=== PATIENT | male | born 1975 | race African-American/Black ===

== ENCOUNTER 2017-10-24 14:21 | Emergency (ER) | payer SELFPAY | END 2017-10-24 15:09 | disposition home or self-care (01) | LOC: ER 14:21 | DX: B34.9 Viral infection, unspecified (principal) | CPT/HCPCS: 71046; 99284-25 ==

== ENCOUNTER 2018-03-10 03:55 | Emergency (ER) | payer SELFPAY | END 2018-03-10 05:15 | disposition home or self-care (01) | LOC: ER 03:55 | DX: K08.89 Other specified disorders of teeth and supporting structures (principal) | CPT/HCPCS: 99283 ==

== ENCOUNTER 2018-08-22 10:51 | Emergency (ER) | payer SELFPAY ==
[~2018-08-22] VITALS: Ht 177.8 cm; Wt 74.8 kg
[~2018-08-22 10:51] MED LIST: AMOX1TAB61 PO; HYDR-971 PO; OSEL75CA PO
[2018-08-22 11:07] VITALS: BP 110/59
--- NOTE | 2018-08-22 11:31 | PHYS DOC ---
Past Medical History Past Medical History: No Pertinent History Past Surgical History: No Surgical History Alcohol Use: None Drug Use: None Adult General Chief Complaint Chief Complaint: SORE THROAT [facility] HPI Patient is a 43 year old male who presents with sore throat and subjective fevers for 4 days. Patient denies any cough or congestion, he states he has history of strep infection and believes he has one. Review of Systems Review of Systems Constitutional: Reports subjective fevers Eyes: Denies change in visual acuity, redness, or eye pain [] HENT: Reports sore throat. Denies nasal congestion . Respiratory: Denies cough or shortness of breath [] Cardiovascular: No additional information not addressed in HPI [] GI: Denies abdominal pain, nausea, vomiting, bloody stools or diarrhea [] : Denies dysuria or hematuria [] Musculoskeletal: Denies back pain or joint pain [] Integument: Denies rash or skin lesions [] Neurologic: Denies headache, focal weakness or sensory changes [] All other systems were reviewed and found to be within normal limits, except as documented in this note. Allergies Allergies Allergies Coded Allergies Type Severity Reaction Last Updated Verified No Known Drug Allergies 10/24/17 No Physical Exam Physical Exam Constitutional: Well developed, well nourished, no acute distress, non-toxic appearance. [] HENT: Normocephalic, atraumatic, bilateral external ears normal, oropharynx moist, no oral exudates, nose normal. [] +1 tonsils. +1 anterior cervical adenopathy Right ear canal noted for foreign object, ear was flushed and ear bud piece fell out. Eyes: PERRLA, EOMI, conjunctiva normal, no discharge. [] Neck: Normal range of motion, no tenderness, supple, no stridor. [] Cardiovascular:Heart rate regular rhythm, no murmur [] Lungs & Thorax: Bilateral breath sounds clear to auscultation [] Abdomen: Bowel sounds normal, soft, no tenderness, no masses, no pulsatile masses. [] Skin: Warm, dry, no erythema, no rash. [] Back: No tenderness, no CVA tenderness. [] Extremities: No tenderness, no cyanosis, no clubbing, ROM intact, no edema. [] Neurologic: Alert and oriented X 3, normal motor function, normal sensory function, no focal deficits noted. [] Psychologic: Affect normal, judgement normal, mood normal. [] Current Patient Data Vital Signs Vital Signs Date Time Temp Pulse Resp B/P (MAP) Pulse Ox O2 Delivery O2 Flow Rate FiO2 08/22/18 11:07 99.9 91 18 110/59 (76) 99 Room Air 99.9 Lab Values Laboratory Tests Test 08/22/18 11:00 Group A Streptococcus Rapid Negative (NEGATIVE) EKG EKG [] Radiology/Procedures Radiology/Procedures [] Course & Med Decision Making Course & Med Decision Making Pertinent Labs and Imaging studies reviewed. (See chart for details) This is a 43-year-old male patient presented to the ED today with sore throat and fevers for 4 days. Negative rapid strep. Temperature 99.9 in the ED. Patient was discharged with instructions to take Tylenol or Motrin for pain. Talked to him about possibility of having influenza as well. He's been sick for 4 days, flu test is not necessary at this point. Supportive management recommended. His right ear canal noted for foreign object, ear was flushed and ear bud piece fell out. TM is normal bilaterally. Dragon Disclaimer Dragon Disclaimer This electronic medical record was generated, in whole or in part, using a voice recognition dictation system. Departure Departure Impression: Primary Impression: Fever Additional Impressions: Acute viral pharyngitis Ear foreign body Disposition: 01 HOME, SELF-CARE Condition: STABLE Referrals: NO PCP (PCP) Follow-up with your own doctor in 1-2 weeks Patient Instructions: Ear Foreign Body, [id number], Fever, Adult, Viral Pharyngitis Additional Instructions: You were seen for sore throat and fever, your strep test is negative. We will culture your swabs. If they become positive we will call with the treatment plan. Take Tylenol or Motrin as needed for fever. Use saltwater gargles as needed. Problem Qualifiers Primary Impression: Fever Fever type: unspecified Qualified Codes: R50.9 - Fever, unspecified Additional Impressions: Ear foreign body Encounter type: initial encounter Laterality: right Qualified Codes: T16.1XXA - Foreign body in right ear, initial encounter CINTHIA WOLFE APRN Aug 22, 2018 11:31
== END 2018-08-22 11:39 | disposition home or self-care (01) ==
LOC: ER 10:51
DX: J02.8 Acute pharyngitis due to other specified organisms (principal); B97.89 Other viral agents as the cause of diseases classified elsewhere; T16.1XXA Foreign body in right ear, initial encounter; X58.XXXA Exposure to other specified factors, initial encounter; Y93.89 Activity, other specified; Y92.89 Other specified places as the place of occurrence of the external cause; Y99.8 Other external cause status
CPT/HCPCS: 87070; 87880; 99284

== ENCOUNTER 2021-04-02 22:10 | Emergency (ER) | payer SELFPAY ==
[~2021-04-02] VITALS: Ht 177.8 cm; Wt 70.8 kg
[~2021-04-02 22:10] MED LIST changes: +HYDR-3164 PO; -HYDR-971 PO
[2021-04-02 22:15] VITALS: BP 153/83
--- NOTE | 2021-04-02 22:32 | PHYS DOC ---
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 States nobody believes him. States he has followed up with multiple places including an eye doctor and they do not believe him. Patient is on his cell phone pulling some [employer] pictures showing us the parasitic infection that we need to be looking at. Patient denies any use of drugs or alcohol. (CINTHIA WOLFE PROC TECH) Review of Systems: Review of Systems: Constitutional: Denies fever or chills. [] Eyes: Reports parasitic infection to bilateral eyes. Denies change in visual acuity. [] HENT: Denies nasal congestion or sore throat. [] Respiratory: Denies cough or shortness of breath. [] Cardiovascular: Denies chest pain or edema. [] GI: Denies abdominal pain, nausea, vomiting, bloody stools or diarrhea. [] : Denies dysuria. [] Musculoskeletal: Denies back pain or joint pain. [] Integument: Denies rash. [] Neurologic: Denies headache, focal weakness or sensory changes. [] Psychiatric: Denies depression or anxiety. [] (CINTHIA WOLFE PROC TECH) Heart Score: C/O Chest Pain: N/A Risk Factors: Risk Factors: DM, Current or recent (<one month) smoker, HTN, HLP, family history of CAD, obesity. Risk Scores: Score 0 - 3: 2.5% MACE over next 6 weeks - Discharge Home Score 4 - 6: 20.3% MACE over next 6 weeks - Admit for Clinical Observation Score 7 - 10: 72.7% MACE over next 6 weeks - Early Invasive Strategies (CINTHIA WOLFE PROC TECH) Allergies: Allergies: Allergies Coded Allergies Type Severity Reaction Last Updated Verified No Known Drug Allergies 10/24/17 No (CINTHIA WOLFE PROC TECH) Physical Exam: PE: Constitutional: Well developed, well nourished, no acute distress, non-toxic appearance. [] HENT: Normocephalic, atraumatic, bilateral external ears normal, oropharynx moist, no oral exudates, nose normal. [] Eyes: PERRLA, EOMI, conjunctiva normal, no discharge. No infection noted to bilateral eyes Neck: Normal range of motion, no tenderness, supple, no stridor. [] Cardiovascular:Heart rate regular rhythm, no murmur [] Lungs & Thorax: Bilateral breath sounds clear to auscultation [] Abdomen: Bowel sounds normal, soft, no tenderness, no masses, no pulsatile masses. [] Skin: Warm, dry, no erythema, no rash. [] Back: No tenderness, no CVA tenderness. [] Extremities: No tenderness, no cyanosis, no clubbing, ROM intact, no edema. [] Neurologic: Alert and oriented X 3, normal motor function, normal sensory function, no focal deficits noted. [] Psychologic: Flat affect (CINTHIA WOLFE APRN) EKG: EKG: [] (CINTHIA WOLFE APRN) Radiology/Procedures: Radiology/Procedures: [] (CINTHIA WOLFE APRN) Course & Med Decision Making: Course & Med Decision Making Pertinent Labs and Imaging studies reviewed. (See chart for details) This is a 45-year-old male patient presenting to the ED today stating he has parasitic infection to his eyes, nasal cavities, symptoms began 1 year ago, he states he has followed up with many places but nobody believes him. Denies any suicidal homicidal ideations. His eyes are normal. Spoke to patient about following up with [facility] and an network control operators supervisor. (CINTHIA WOLFE APRN) Course & Med Decision Making Chart Reviewed. Care and Treatment plan formulated by [employer] [employer]. I was available for consult. (MARGARET HILL I DO) Dragon Disclaimer: Dragon Disclaimer: This electronic medical record was generated, in whole or in part, using a voice recognition dictation system. (CINTHIA WOLFE APRN) Departure Departure Impression: Primary Impression: Psychological assessment Disposition: HOME / SELF CARE / HOMELESS Condition: STABLE Referrals: NO PCP (PCP) Follow-up with [facility] KVNG FINNEY MD follow up as soon as possible Patient Instructions: Psychosis Additional Instructions: You were evaluated in the emergency room, we highly recommend you follow-up with [place] [facility] as well as the provided network control operators supervisor. CINTHIA WOLFE APRN Apr 02, 2021 22:32 MARGARET HILL DO Apr 03, 2021 01:41
== END 2021-04-02 22:45 | disposition home or self-care (01) ==
LOC: ER 22:10
DX: B89 Unspecified parasitic disease (principal)
CPT/HCPCS: 99281